=== PATIENT | female | born 1990 | race Caucasian/White ===

== ENCOUNTER 2017-12-29 15:49 | Emergency (ER) | payer MEDICAID, BC ==
[~2017-12-29] VITALS: Ht 165.1 cm; Wt 90.9 kg
[2017-12-29 16:10] VITALS: Ht 165.1 cm; Wt 90.9 kg
[2017-12-29 16:30] LABS: APPEARANCE HAZY (CLEAR); BILIRUBIN NEGATIVE (NEGATIVE); COLOR YELLOW (YELLOW); GLUCOSE NEGATIVE (NEGATIVE); KETONE NEGATIVE (NEGATIVE); NITRITE NEGATIVE (NEGATIVE); PROTEIN NEGATIVE (NEGATIVE); SPECIFIC GRAVITY 1.015 (1.005-1.020)
[2017-12-29 16:31] LABS: RED CELLS - URINE 0-5 /hpf (0-5)
[2017-12-29 16:34] LABS: AMORPHOUS SEDIMENT >1+ /lpf (NONE SEEN); BACTERIA MODERATE /hpf (NONE SEEN)
[2017-12-29 16:37] LABS: BASOPHILS 0.2 % (0-2); EOSINOPHILS 0.6 % (0-7); HEMOGLOBIN 12.7 g/dL (12-16); IMMATURE GRANULOCYTES 0.2 % (0-5); LYMPHOCYTES 24.5 % (15-50); MCH 30.2 pg (26.0-34.0); MCHC 34.3 g/dL (31.0-37.0); MCV 88.1 fL (80.0-100.0); MEAN PLATELET VOLUME 8.3 fL (7.4-10.4); MONOCYTES 8.7 % (2-11); NEUTROPHILS 65.8 % (40-80); PLATELET COUNT 267 10x3/uL (130-400); RDW 13.5 % (11.5-14.5); WBC 16.1 10x3/uL (4.8-10.8)
[2017-12-29 17:07] LABS: ALBUMIN 2.9 g/dL (3.4-5.0); ALKALINE PHOSPHATASE 62 U/L (46-116); ALT (SGPT) 17 U/L (10-68); BILIRUBIN - TOTAL 0.22 mg/dL (0.2-1.3); CALC OSMOLALITY 267 mosm/kg (275-300); CALCIUM 8.7 mg/dL (8.5-10.1); CARBON DIOXIDE 26.9 mmol/L (21.0-32.0); CHLORIDE - SERUM 98 mmol/L (98-107); CREATININE - SERUM 0.7 mg/dL (0.6-1.3); GLUCOSE 109 mg/dL (74-106); POTASSIUM - SERUM 3.8 mmol/L (3.5-5.1); PROTEIN - SERUM 7.7 g/dL (6.4-8.2); SODIUM 134 mmol/L (136-145); UREA NITROGEN 10 mg/dL (7-18); eGFR NON AFRICAN AMERICAN > 90 mL/min (90-120)
[2017-12-29 17:45] LABS: HCG SERUM NEGATIVE (NEGATIVE)
[2017-12-29 17:59] LABS: UDS - AMPHET POSITIVE QUAL (NEGATIVE); UDS - BARB NEGATIVE QUAL (NEGATIVE); UDS - BENZO NEGATIVE QUAL (NEGATIVE); UDS - COCAINE NEGATIVE QUAL (NEGATIVE); UDS - OPIATE NEGATIVE QUAL (NEGATIVE); UDS - PCP NEGATIVE QUAL (NEGATIVE); UDS - THC POSITIVE QUAL (NEGATIVE)
[2017-12-29] MEDS ORDERED: TORADOL10 MG PO (19:55)
[2017-12-29] MEDS ORDERED: MACROBID100 MG PO (19:57)
[2017-12-29] MEDS ORDERED: ZOFRAN8 MG PO (19:57)
[2017-12-29 20:17] VITALS: BP 111/68
[2017-12-31 22:07] LABS: CHLAMYDIA TRACHOMATIS, NAA Negative (Negative)
== END 2017-12-29 20:15 | disposition home or self-care (01) ==
LOC: D.ER 15:49
PROVIDERS: Emergency Medicine
DX: N39.0 Urinary tract infection, site not specified (principal); N12 Tubulo-interstitial nephritis, not specified as acute or chronic; F15.10 Other stimulant abuse, uncomplicated

== ENCOUNTER → 2019-04-18 13:13 | Outpatient (CLI) | payer MEDICAID ==
[2017-12-29 16:10] VITALS: BMI 33.3
[~2019-04-18 13:13] MED LIST: MACROBID100 MG PO; TORADOL10 MG PO; ZOFRAN8 MG PO
[2019-04-18 14:49] LABS: APPEARANCE CLEAR (CLEAR); BILIRUBIN NEGATIVE (NEGATIVE); COLOR YELLOW (YELLOW); GLUCOSE NEGATIVE (NEGATIVE); KETONE NEGATIVE (NEGATIVE); NITRITE NEGATIVE (NEGATIVE); PROTEIN 1+ mg/dL (NEGATIVE); UROBILINOGEN NORMAL (NORMAL)
[2019-04-18 14:50] LABS: BACTERIA FEW /hpf (NEGATIVE); RED CELLS - URINE NONE SEEN /hpf (0-5); WHITE CELLS - URINE 0-5 /hpf (NEGATIVE)
== END | disposition home or self-care (01) ==
LOC: D.LDO 13:13
PROVIDERS: ATTEND Obstetrics & Gynecology
DX: O26.892 Other specified pregnancy related conditions, second trimester (principal); Z3A.23 23 weeks gestation of pregnancy; R10.9 Unspecified abdominal pain

== ENCOUNTER 2019-08-13 05:10 | Outpatient (CLI) | payer MEDICAID ==
[~2019-08-13] VITALS: Ht 165.1 cm; Wt 99.6 kg
[2019-08-13] MEDS ORDERED: ACETAMINOPHEN325 MG PO (06:05)
[2019-08-13 06:08] VITALS: BP 121/73; Ht 165.1 cm; Wt 99.6 kg
[2019-08-13 08:17] LABS: UDS - AMPHET NEGATIVE QUAL (NEGATIVE); UDS - BARB NEGATIVE QUAL (NEGATIVE); UDS - BENZO NEGATIVE QUAL (NEGATIVE); UDS - OPIATE NEGATIVE QUAL (NEGATIVE); UDS - PCP NEGATIVE QUAL (NEGATIVE); UDS - THC POSITIVE QUAL (NEGATIVE)
[2019-08-13 08:37] LABS: HEMATOCRIT 37.2 % (36.0-48.0); HEMOGLOBIN 12.2 g/dL (12-16); MCH 30.6 pg (26.0-34.0); MCHC 32.8 g/dL (31.0-37.0); MCV 93.2 fL (80.0-100.0); MEAN PLATELET VOLUME 10.1 fL (7.4-10.4); RBC 3.99 10x6/uL (4.00-5.40); RDW 13.2 % (11.5-14.5); WBC 10.2 10x3/uL (4.8-10.8)
[2019-08-13 14:06] LABS: UDS - COCAINE NEGATIVE QUAL (NEGATIVE)
[2019-08-14 06:09] LABS: RAPID PLASMA REAGIN Non Reactive (Non Reactive)
== END 2019-08-13 19:00 | disposition home or self-care (01) ==
LOC: D.LD 05:10 → D.LDO 05:10 → UNDOADMIN 05:10 → D.LD 19:00 → D.LDO 19:00 → EDSTATUS 08-14 16:27
PROVIDERS: ATTEND Student in an Organized Health Care Education/Training Program
DX: O26.899 Other specified pregnancy related conditions, unspecified trimester (principal); Z3A.00 Weeks of gestation of pregnancy not specified

== ENCOUNTER 2019-08-16 00:45 | Outpatient (CLI) | payer MEDICAID ==
[2019-08-13 06:08] VITALS: BMI 36.6
[~2019-08-16 00:45] MED LIST changes: +ACETAMINOPHEN325 MG PO
[2019-08-16 01:10] LABS: BILIRUBIN NEGATIVE (NEGATIVE); GLUCOSE NEGATIVE (NEGATIVE); KETONE NEGATIVE (NEGATIVE); NITRITE NEGATIVE (NEGATIVE); SPECIFIC GRAVITY 1.015 (1.005-1.020); UROBILINOGEN NORMAL (NORMAL)
[2019-08-16 01:16] LABS: UDS - AMPHET NEGATIVE QUAL (NEGATIVE); UDS - BARB NEGATIVE QUAL (NEGATIVE); UDS - BENZO NEGATIVE QUAL (NEGATIVE); UDS - COCAINE NEGATIVE QUAL (NEGATIVE); UDS - OPIATE NEGATIVE QUAL (NEGATIVE); UDS - PCP NEGATIVE QUAL (NEGATIVE); UDS - THC POSITIVE QUAL (NEGATIVE)
[2019-08-16] MEDS ORDERED: PRENAVITE1 TAB PO (11:16)
== END 2019-08-16 02:08 | disposition left against medical advice (07) ==
LOC: D.LDO 00:45
PROVIDERS: ATTEND Student in an Organized Health Care Education/Training Program
DX: O26.899 Other specified pregnancy related conditions, unspecified trimester (principal); Z3A.00 Weeks of gestation of pregnancy not specified; Z53.29 Procedure and treatment not carried out because of patient's decision for other reasons

== ENCOUNTER 2019-08-16 08:30 | Inpatient (IN) | payer MEDICAID ==
[~2019-08-16] VITALS: Ht 165.1 cm; Wt 100.0 kg
[2019-08-16] MEDS ORDERED: PRENAVITE1 TAB PO (11:16)
[2019-08-16 11:29] LABS: HEMATOCRIT 37.4 % (36.0-48.0); HEMOGLOBIN 12.8 g/dL (12-16); MCH 30.9 pg (26.0-34.0); MCHC 34.2 g/dL (31.0-37.0); MCV 90.3 fL (80.0-100.0); MEAN PLATELET VOLUME 9.8 fL (7.4-10.4); RBC 4.14 10x6/uL (4.00-5.40); RDW 13.5 % (11.5-14.5)
[2019-08-16 11:30] LABS: BILIRUBIN NEGATIVE (NEGATIVE); GLUCOSE NEGATIVE (NEGATIVE); KETONE NEGATIVE (NEGATIVE); NITRITE NEGATIVE (NEGATIVE); UROBILINOGEN NORMAL (NORMAL)
[2019-08-16 11:32] LABS: BACTERIA FEW /hpf (NEGATIVE); RED CELLS - URINE 0-5 /hpf (0-5); WHITE CELLS - URINE 0-5 /hpf (NEGATIVE)
[2019-08-16 11:50] LABS: UDS - AMPHET NEGATIVE QUAL (NEGATIVE); UDS - BARB NEGATIVE QUAL (NEGATIVE); UDS - BENZO NEGATIVE QUAL (NEGATIVE); UDS - COCAINE NEGATIVE QUAL (NEGATIVE); UDS - OPIATE NEGATIVE QUAL (NEGATIVE); UDS - PCP NEGATIVE QUAL (NEGATIVE); UDS - THC POSITIVE QUAL (NEGATIVE)
[2019-08-16 12:46] VITALS: BP 126/73; Ht 165.1 cm; Wt 100.0 kg
--- NOTE | 2019-08-17 06:00 | NUR ---
ROUNDS MADE. PT RESTING IN SUPINE POSITION W/EYES CLOSED. RESP EVEN AND UNLABORED. SNORING AUDIBLE. PT LEFT UNDISTURBED AT THIS TIME.
--- NOTE | 2019-08-17 07:00 | NUR ---
REPORT RECEIVED FROM Darren SHI RN.
--- NOTE | 2019-08-17 07:30 | NUR ---
PT. AMBULATING OFF UNIT ACCOMPANIED BY VISITOR.
--- NOTE | 2019-08-17 07:30 | NUR ---
PT RETURNED TO L&D WITH VISITOR. PT. TRANSFERRED TO [facility]OMEN[facility]S SERVICES AMBULATORY TO ROOM 1222.
[2019-08-17 09:00] VITALS: BP 133/82
--- NOTE | 2019-08-17 09:04 | NUR ---
PT UP TO VOID. ASSISTED WITH PERICARE. PT WASHED WITH BETADYNE/WATER PERIBOTTLE. DERMAPLAST, TUCKS AND ICE PACK APPLIED TO PERINEUM. ASSISTED T BED. BED IN LOW POSITION; SIDE RAILS UP X2. VISITOR AT BEDSIDE. PT REQUESTING PAIN MED AND NICODERM PATCH. MEDS GIVEN.
--- NOTE | 2019-08-17 10:00 | NUR ---
RESTING IN BED WITH EYES CLOSED. AWAKENS TO VERBAL STIMULATION. STATES PAIN IS BETTER-2/10. VISITOR AT BEDSIDE.
--- NOTE | 2019-08-17 10:30 | NUR ---
INFANT BROUGHT TO PATIENT. PATIENT AWAKE, ALERT. BANDS MATCHED.
[2019-08-17 11:15] VITALS: BP 111/73
--- NOTE | 2019-08-17 12:21 | NUR ---
PT SITTINT UP IN BED, IN ARMS; VISITOR AT BEDSIDE. NO COMPLAINTS OR NEEDS VOICED AT THIS TIME.
--- NOTE | 2019-08-17 13:00 | NUR ---
PT REMOVED NICOTINE PATCH IN ORDER TO SMOKE CIGARETTE.
--- NOTE | 2019-08-17 13:15 | NUR ---
PT AMBULATED OFF UNIT ACCOMPANIED BY VISITOR TO SMOKE.
--- NOTE | 2019-08-17 13:30 | NUR ---
LAB HERE TO DRAW CBC. PT. REMAINS OFF UNIT.
--- NOTE | 2019-08-17 13:57 | NUR ---
PT RETURNED TO UNIT ACCOMPANIED BY VISITOR. PT. STOPPED AT NURSERY TO GET BABY. BABY TO MOTHER'S ROOM VIA OPEN CRIB. LAB NOTIFIED PATIENT HAS RETURNED TO UNIT.
[2019-08-17 14:49] LABS: HEMATOCRIT 30.8 % (36.0-48.0); HEMOGLOBIN 10.6 g/dL (12-16); LYMPHOCYTES 24.4 % (15-50); MCH 31.4 pg (26.0-34.0); MCHC 34.4 g/dL (31.0-37.0); MCV 91.1 fL (80.0-100.0); MEAN PLATELET VOLUME 9.8 fL (7.4-10.4); NEUTROPHILS 71.4 % (40-80); PLATELET COUNT 208 10x3/uL (130-400); RBC 3.38 10x6/uL (4.00-5.40); RDW 13.3 % (11.5-14.5); WBC 12.1 10x3/uL (4.8-10.8)
--- NOTE | 2019-08-17 15:00 | NUR ---
ROUNDS MADE. PT. SITTING UP IN BED. INFANT AT BEDSIDE IN OPEN CRIB. PT.REQUESTS MOTRIN FOR PAIN. PT UP TO BATHROOM. ASSISTED WITH PERICARE. FRESH ICE PACK APPLIED TO PERINEUM.
--- NOTE | 2019-08-17 15:29 | NUR ---
SNACK OF PUDDING AND SOFT DRINK GIVEN.
--- NOTE | 2019-08-17 15:34 | MORECARE ---
CASE MANAGEMENT DISCHARGE SUMMARY PATIENT: DUSTIN PADGETT UNIT: [id number] ADM DATE: 08/16/19 AGE: 28 : 91 SEX: F ROOM/BED: D.1222 AUTHOR: MATT KNUTSON PHYSICIAN: REFERRING PHYSICIAN: DIANNE GOVEA DO DATE OF SERVICE: 08/17/19 Discharge Plan Patient Name: DUSTIN PADGETT Facility: [facility]:[place] : 1990 Planned Disposition: Home Anticipated Discharge Date: 08/17/19 Discharge Date: Expected LOS: 1 Initial Reviewer: [email or web address] Initial Review Date: 08/16/2019 Generated: 08/17/19 4:34 pm Comments DCP- Discharge Planning Updated by [email or web address]: Barbara Obregon on 08/17/19 1:[address] CM received an order for a CM Consult. CM contacted MOB via telephone regarding DC plan. Baby's Full name: Nrom Padgett. MOB Full name: Dustin Padgett. FOB: Momo Meyer #[phone], works at [employer]. Correct Physical Address: [address] [place] [address], [facility]. VANESA is unemployed and will be providing the baby's care. VANESA lives with her boyfriend, Victor Hugo Hernandez #[phone], in a camper. This is VANESA's first baby. Per MOB, FOB will be involved with the baby's care and life. VANESA denies parenting classes priot to delivery. VANESA feels the home environment is a safe one, she has no concerns/questions regarding taking the baby home and her sister, Sophia Padgett will drive her home. VANESA has a car seat, instructed to bring it to the hospital prior to baby DC. VANESA receives [employer] [place], will go to the [facility] office 08/17. VANESA has been attempting to breast feed, but due to absence of milk flow, she is feeding via bottle. MOB states she will continue to attempt breast feeding. VANESA states she has diapers, clothing, a Pack-n-play with a bassinet, car seat. Water supply is with [facility], heating is gas, smoke detectors and she does have air conditioning. Pediatritian: is Water source: [place]. Patient Name: DUSTIN PADGETT Page 20606 at 1534 All edits/amendments must be made on the electronic document DICTATION DATE: 08/17/191533 VAMP LINER: JACLYN 08/17/191533 RPT#: [id number] DC DATE: STATUS: ADM IN [facility] [address] [place] [address] END OF REPORT
--- NOTE | 2019-08-17 16:45 | NUR ---
ROUNDS MADE. PT. SITTING UP IN BED EATING REGULAR DINNER. INFANT AT BEDSIDE IN OPEN CRIB. NO COMPLAINTS OR NEEDS VOICED AT THIS TIME.
[2019-08-17 17:30] VITALS: BP 144/75
--- NOTE | 2019-08-17 18:00 | NUR ---
PT. AMBULATED TO NURSERY WITH INFANT IN OPEN CRIB, THEN OFF UNIT TO MEET SISTER AT FRONT OF BUILDING.
--- NOTE | 2019-08-17 19:00 | NUR ---
REPORT GIVEN BY ÁNGEL LEE
--- NOTE | 2019-08-17 19:11 | NUR ---
PT RETURNED TO FLOOR WITH SISTER. INFORMED PATIENT AND SISTER THAT PATIENT CANNOT LEAVE THE FLOOR FOR MORE THAN 10-15 MINUTES. PT. STATES UNDERSTANDNG[address] DR. RUSS PAGED.
--- NOTE | 2019-08-17 19:15 | NUR ---
DR. RUSS RETURNED PAGE. INFORMED HIM OF PATIENT LEAVING THE UNIT 2X FOR OVER [address] RUSS STATES PATIENT IS TO BE DISCHARGED IMMEDIATELY IF PT. LEAVES WOMEN'S SERVICES AREA AGAIN.
[2019-08-17 20:30] VITALS: BP 123/78
--- NOTE | 2019-08-17 20:30 | NUR ---
PT ASSESSMENT COMPLETED. HEART SOUNDS WNL, LUNGS CLEAR, BS FAINT, FUNDUS FIRM, LOCHIA SMALL. PT HAS A MED.LATERAL INCISION TO VERONIKA AREA. PT HAS BEEN EDUCATED ON HOW TO CLEAN THIS AREA AND APPLY MEDS GIVEN. SHE HAS A SALINE LOCK IN THE LEFT WRIST. PT HAS BEEN AMBULATING UP AND DOWN THE HALLS AND OUTSIDE TO SMOKE SINCE 1330 THIS AFTERNOON. IT WAS EXPLAINED TO HER THAT SHE CANNOT LEAVE THE UNIT ANY MORE TONIGHT. SHE WAS AGREEABLE. SHE ASKED FOR ANOTHER NICOTINE PATCH BUT SINCE SHE'S HAD TWO TODAY I TOLD HER NO. SHE WAS OK WITH THAT, TOO. PT SISTER IS IN THE ROOM. PT HAS THE ITEMS NEEDED TO TAKE A SHOWER LATER THIS EVENING. PT AND BABY BONDING WELL. PT HOLDS BABY KISSING ALL OVER HIM.
--- NOTE | 2019-08-17 23:09 | NUR ---
PT C/O PAIN IN VERONIKA AREA. PERCOCET 5 MG AND MOTRIN 600 MG GIVEN PO. PT IS FEEDING HER BABY WITH THE HELP OF THE NURSERY NURSE. PT SISTER IS IN THE ROOM.
--- NOTE | 2019-08-17 23:51 | NUR ---
PT DOING WELL. STATES PAIN IS ABOUT A 6. PT HOLDING BABY IN HER ARMS. AT BEDSIDE.
--- NOTE | 2019-08-18 02:05 | NUR ---
PT IS RESTING QUIETLY WITH EYES CLOSED. RESPIRATIONS ARE EVEN. NO C/O
--- NOTE | 2019-08-18 04:09 | NUR ---
PT RESTING QUIETLY. NO C/O OR NEEDS.
[2019-08-18 06:09] LABS: RAPID PLASMA REAGIN Non Reactive (Non Reactive)
[2019-08-18 07:51] VITALS: BP 116/74
--- NOTE | 2019-08-18 07:51 | NUR ---
THIS RN TO ROOM FOR SHIFT ASSESSMENT. PT FINISHING UP EATING BREAKFASTS, REQUESTS TO "GO WALK" OFF UNIT TO SMOKE. PT ADVISED MD HAS INSTRUCTED PT TO STAY ON UNIT FOR SAFETY. PT REQUESTS NICOTINE PATCH IF SHE CANNOT LEAVE TO SMOKE. NICOTINE PATCH APPLIED TO LEFT UPPER ARM ORDERED, SEE EMAR FOR DOC. PT RATES PAIN /10, STATES MOTRIN HELPED. SHIFT ASSESSMENT COMPLETED, VSS, SEE FLOWSHEET FOR DOC. FF, ML, U/1. SMALL RUBRA LOCHIA, NO CLOTS. SEVERE LABIAL SWELLING NOTED. PT DENIES WANTING ICE PACK FOR PERINEUM. DISCUSSED S/S TO REPORT WITH HEAVY LOCHIA AND CLOTS, UNDERSTANDING VERBALIZED, PT DENIES HAVING ANY OF THOSE S/S. LEFT WRIST SALINE LOCKED PIV NOTED TO BE SWOLLEN AT SITE WITH DRIED BLOOD. LABS REVIEWED AND NOTED TO BE STABLE, PT DENIES FEELING DIZZY WHEN UP AMBULATING. PIV REMOVED, CLEANED, AND BANDAID APPLIED TO SITE. POC DISCUSSED WITH PT, STATES SHE WANTS TO BE DISCHARGED DEEP SO SHE CAN COME AND GO OFF UNIT. WILL NOTIFY .
[2019-08-18 08:34] LABS: HEMATOCRIT 32.4 % (36.0-48.0); HEMOGLOBIN 10.8 g/dL (12-16); LYMPHOCYTES 30.7 % (15-50); MCH 30.4 pg (26.0-34.0); MCHC 33.3 g/dL (31.0-37.0); MCV 91.3 fL (80.0-100.0); MEAN PLATELET VOLUME 9.6 fL (7.4-10.4); NEUTROPHILS 62.4 % (40-80); PLATELET COUNT 196 10x3/uL (130-400); RBC 3.55 10x6/uL (4.00-5.40); RDW 13.4 % (11.5-14.5); WBC 9.5 10x3/uL (4.8-10.8)
--- NOTE | 2019-08-18 09:04 | NUR ---
DR GOVEA TO ROOM ROUNDING AT THIS TIME.
--- NOTE | 2019-08-18 09:15 | NUR ---
VERBAL ORDER RECEIVED TO DISCHARGE PT TO ROOM IN STATUS, AND MAY CALL IN 600MG MOTRIN Q6H PRN PAIN, DISPENSE 20, TO PT'S PREFERRED PHARMACY. WILL PROCEED ORDERED.
[2019-08-18] MEDS ORDERED: IBUPROFEN600 MG PO (09:28)
--- NOTE | 2019-08-18 10:00 | NUR ---
PT GIVEN DISCHARGE INSTRUCTIONS AND MED INSTRUCTIONS REVIEWED. PT STATE SHE WOULD LIKE MOTRIN PRESCRIPTION CALLED IN TO [facility] ON [address] IN COMSTOCK. ROOM IN AGREEMENT DISCUSSED WITH PT AND FORMS SIGNED, CONTACT PHONE NUMBER PROVIDED. PT VERBALIZES UNDERSTANDING OF ALL INSTRUCTIONS AND SIGNS CHART COPIES OF INSTRUCTIONS. PT UNDERSTANDS TO NOTIFY NURSERY WHEN SHE DEPARTS FROM UNIT.
--- NOTE | 2019-08-18 12:59 | MORECARE ---
CASE MANAGEMENT DISCHARGE SUMMARY PATIENT: DUSTIN PADGETT UNIT: [id number] ADM DATE: 08/16/19 AGE: 28 : [birth year] SEX: F ROOM/BED: D.1222 AUTHOR: ZENIA,DOC PHYSICIAN: REFERRING PHYSICIAN: DIANNE GOVEA DO DATE OF SERVICE: 08/18/19 Discharge Plan Patient Name: DUSTIN PADGETT Facility: [facility]:[place] : 1990 Planned Disposition: Home Anticipated Discharge Date: 08/17/19 Discharge Date: 08/18/2019 Expected LOS: 1 Initial Reviewer: [email or web address] Initial Review Date: 08/16/2019 Generated: 08/18/19 1:59 pm Comments DCP- Discharge Planning Updated by [email or web address]: Barbara Obregon on 08/17/19 1:[address] CM received an order for a CM Consult. CM contacted MOB via telephone regarding DC plan. Baby's Full name: Norm Padgett. MOB Full name: Dustin Padgett. FOB: Momo Meyer #[phone], works at [employer]. Correct Physical Address: [address] [place] [address], [facility]. VANESA is unemployed and will be providing the baby's care. VANESA lives with her boyfriend, Victor Hugo Hernandez #[phone], in a camper. This is VANESA's first baby. Per MOB, FOB will be involved with the baby's care and life. VANESA denies parenting classes priot to delivery. VANESA feels the home environment is a safe one, she has no concerns/questions regarding taking the baby home and her sister, Sophia Padgett will drive her home. VANESA has a car seat, instructed to bring it to the hospital prior to baby DC. VANESA receives [employer] [place], will go to the [facility] office 08/17. VANESA has been attempting to breast feed, but due to absence of milk flow, she is feeding via bottle. MOB states she will continue to attempt breast feeding. VANESA states she has diapers, clothing, a Pack-n-play with a bassinet, car seat. Water supply is with the [facility], heating is gas, smoke detectors and she does have air conditioning. Pediatritian: is Water source: [place]. Last DP export: 08/17/19 2:34 p Patient Name: DUSTIN PADGETT Page 99908 at 1258 All edits/amendments must be made on the electronic document DICTATION DATE: 08/18/19 6634 CONTROL SPECIALIST: JACLYN 08/18/19 0461 RPT#: [id number] DC DATE:08/18/19 STATUS: DIS IN [facility] [address] [place] [address] END OF REPORT
== END 2019-08-18 10:00 | disposition home or self-care (01) | DRG 807 ==
LOC: D.LDO 08:30 → D.LD 09:49 → D.WS 09:49 → D.LD 08-17 05:00 → D.WS 08-17 08:15
PROVIDERS: ADMIT Student in an Organized Health Care Education/Training Program; ATTEND Student in an Organized Health Care Education/Training Program
PROC: 10E0XZZ Delivery of Products of Conception, External Approach (ICD-10-PCS; principal; 2019-08-17)
PROC: 0W8NXZZ Division of Female Perineum, External Approach (ICD-10-PCS; 2019-08-17)
DX: O99.824 Streptococcus B carrier state complicating childbirth (principal); Z37.0 Single live birth; Z3A.40 40 weeks gestation of pregnancy; O99.334 Smoking (tobacco) complicating childbirth; F17.200 Nicotine dependence, unspecified, uncomplicated; O36.8330 Maternal care for abnormalities of the fetal heart rate or rhythm, third trimester, not applicable or unspecified; O69.81X0 Labor and delivery complicated by cord around neck, without compression, not applicable or unspecified

== ENCOUNTER 2019-10-07 11:01 | Emergency (ER) | payer MEDICAID ==
[~2019-10-07] VITALS: Ht 165.1 cm; Wt 90.0 kg
[~2019-10-07 11:01] MED LIST changes: +IBUPROFEN600 MG PO; +PRENAVITE1 TAB PO
[2019-10-07 11:16] VITALS: Ht 165.1 cm; Wt 90.0 kg
[2019-10-07 12:21] LABS: BASOPHILS 0.3 % (0-2); EOSINOPHILS 2.8 % (0-7); HEMATOCRIT 43.2 % (36.0-48.0); HEMOGLOBIN 14.4 g/dL (12-16); IMMATURE GRANULOCYTES 0.2 % (0-5); LYMPHOCYTES 36.9 % (15-50); MCH 30.5 pg (26.0-34.0); MCHC 33.3 g/dL (31.0-37.0); MCV 91.5 fL (80.0-100.0); MEAN PLATELET VOLUME 8.7 fL (7.4-10.4); MONOCYTES 4.8 % (2-11); RBC 4.72 10x6/uL (4.00-5.40); RDW 12.8 % (11.5-14.5)
[2019-10-07 12:22] LABS: PLATELET COUNT 334 10x3/uL (130-400)
[2019-10-07 12:35] LABS: ALBUMIN 3.7 g/dL (3.4-5.0); ALKALINE PHOSPHATASE 71 U/L (30-120); ALT (SGPT) 22 U/L (10-68); CALCIUM 9.4 mg/dL (8.5-10.1); CARBON DIOXIDE 24.3 mmol/L (21.0-32.0); CREATININE - SERUM 0.8 mg/dL (0.6-1.3); GLUCOSE 101 mg/dL (74-106); LIPASE 94 U/L (73-393); PROTEIN - SERUM 7.8 g/dL (6.4-8.2); UREA NITROGEN 20 mg/dL (7-18); eGFR NON AFRICAN AMERICAN 90 mL/min (90-120)
[2019-10-07 13:10] LABS: HCG URINE NEGATIVE (NEGATIVE)
[2019-10-07 13:25] LABS: BILIRUBIN NEGATIVE (NEGATIVE); GLUCOSE NEGATIVE (NEGATIVE); KETONE NEGATIVE (NEGATIVE); NITRITE NEGATIVE (NEGATIVE); SPECIFIC GRAVITY 1.005 (1.005-1.020); UROBILINOGEN NORMAL (NORMAL); WHITE CELLS - URINE 0-5 /hpf (NEGATIVE)
[2019-10-07 13:26] LABS: BACTERIA FEW /hpf (NEGATIVE); EPITHELIAL CELLS 0-5 /hpf (0-5); RED CELLS - URINE RARE /hpf (0-5)
[2019-10-07 13:33] VITALS: BP 117/66
[2019-10-07 13:42] LABS: CALC OSMOLALITY 278 mosm/kg (275-300); CHLORIDE - SERUM 104 mmol/L (98-107); SODIUM 138 mmol/L (136-145)
[2019-10-07] MEDS ORDERED: BENTYL 20 MG TA20 MG PO (14:06)
[2019-10-07] MEDS ORDERED: KEFLEX500 MG PO (14:06)
== END 2019-10-07 14:19 | disposition home or self-care (01) ==
LOC: D.ER 11:01
PROVIDERS: Family Medicine
DX: N39.0 Urinary tract infection, site not specified (principal); R10.9 Unspecified abdominal pain

== ENCOUNTER 2020-08-18 06:56 | Day surgery (SDC) | payer MEDICAID ==
[2020-08-17 12:49] LABS: CALC OSMOLALITY 279 mosm/kg (275-300); CALCIUM 9.3 mg/dL (8.5-10.1); CARBON DIOXIDE 29.5 mmol/L (21.0-32.0); CHLORIDE - SERUM 102 mmol/L (98-107); CREATININE - SERUM 0.8 mg/dL (0.6-1.3); GLUCOSE 130 mg/dL (74-106); POTASSIUM - SERUM 4.3 mmol/L (3.5-5.1); SODIUM 137 mmol/L (136-145); UREA NITROGEN 23 mg/dL (7-18); eGFR NON AFRICAN AMERICAN 90 mL/min (90-120)
[2020-08-17 12:52] LABS: BASOPHILS 0.5 % (0-2); EOSINOPHILS 2.3 % (0-7); HEMOGLOBIN 14.7 g/dL (12-16); IMMATURE GRANULOCYTES 0.2 % (0-5); LYMPHOCYTE ABS# 3.15 10x3/uL (1.18-3.74); LYMPHOCYTES 30.4 % (15-50); MCH 29.9 pg (26.0-34.0); MCHC 33.4 g/dL (31.0-37.0); MCV 89.6 fL (80.0-100.0); MEAN PLATELET VOLUME 9.7 fL (7.4-10.4); MONOCYTES 6.6 % (2-11); NEUTROPHIL ABS# 6.23 10x3/uL (1.56-6.13); RBC 4.91 10x6/uL (4.00-5.40); RDW 13.1 % (11.5-14.5); WBC 10.4 10x3/uL (4.8-10.8)
[2020-08-17 12:58] LABS: PLATELET COUNT 266 10x3/uL (130-400)
[~2020-08-18] VITALS: Ht 165.1 cm; Wt 101.6 kg
--- NOTE | ~2020-08-18 | OP ---
PATIENT NAME: DUSTIN MERCEDES MEDICAL RECORD: [id number] :[birth year] LOCATION:D.OPS ADMISSION DATE: SURGEON: MATT DIGGS MD DATE OF OPERATION: 08/18/2020 PREOPERATIVE DIAGNOSES: 1. Ventral hernia. 2. Anxiety. 3. Obesity with a BMI of 37. POSTOPERATIVE DIAGNOSES: 1. Ventral hernia. 2. Anxiety. 3. Obesity with a BMI of 37. PROCEDURE: Ventral hernia repair with 6.[address] mesh. SURGEON: Matt Diggs MD REPORT OF PROCEDURE: The patient's abdomen was prepped and draped in sterile fashion. A skin incision was made in the midline just above the umbilicus. Electrocautery was used to dissect through the subcutaneous tissues and we immediately encountered a large hernia sac. This hernia sac was dissected free from the surrounding fatty tissue. As we got to the base of the sac, we were able to excise the sac at its base using electrocautery. The fascial edges were cleared off and we measured this hernia defect at about 3.5 cm wide and 2 cm long. Just below this at the base of the umbilicus, there was a subcentimeter hernia defect present and just above the larger hernia defect, there was a 1-cm hernia defect in the midline. I cleared off the fascia above and below and was able to insert a 6.[address] mesh, which covered all 3 of the hernia defects. This was sutured into place in an underlay fashion using interrupted 0 Prolenes times 4. After we irrigated out the wound bed, then the fascia was closed on the larger hernia defect transversely using a running 0 Vicryl. The 2 other smaller defects were oversewn with [id number] 0 Vicryls. The umbilicus was tacked down to the fascia using a single interrupted 3-0 Vicryl and the subcutaneous tissues were reapproximated with interrupted 3-0 Vicryl. The skin incisions was infused with 10 mL of 0.25% Marcaine with epinephrine and then closed with running subcutaneous 5-0 Monocryl. COMPLICATIONS: None. CONDITION: Stable. ANESTHESIA: General endotracheal and local. BLOOD LOSS: Minimal. TRANSINT:[id number] Voice Confirmation ID: [id number] DOCUMENT ID: [id number] OPERATIVE REPORT [id number] DAREN,CHELSEA MATT DIGGS MD CC: NANCY MCKEON [id number] DICTATION DATE: 08/18/20 0959 FORESTRY FIRE AID: 08/18/20 1225 [facility] 08/18/20 [place] [id number] [place] [address]
[~2020-08-18 06:56] MED LIST changes: +BENTYL 20 MG TA20 MG PO; +KEFLEX500 MG PO; +PROZAC20 MG PO
[2020-08-18 07:42] VITALS: BP 113/73; Ht 165.1 cm; Wt 101.6 kg
[2020-08-18 08:14] LABS: HCG URINE NEGATIVE (NEGATIVE)
[2020-08-18] MEDS ORDERED: HYDROCODON-ACE1 EA10 PO (09:58)
--- NOTE | 2020-08-18 11:25 | NUR ---
1113 MEDICATED FOR PAIN. ASSISTED TO BATHROOM VOIDED X1 ICE APPLIED TO RIGHT HAND FROM PREVIOUS IV START. AREA BRUISED AND PAINFUL
--- NOTE | 2020-08-18 12:23 | NUR ---
1130 IV REMOVED AND INSTRUCTIONS GIVEN
== END 2020-08-18 12:05 | disposition home or self-care (01) ==
LOC: D.OPS 06:56
PROVIDERS: ATTEND Surgery
DX: K43.9 Ventral hernia without obstruction or gangrene (principal); F41.9 Anxiety disorder, unspecified; E66.9 Obesity, unspecified; Z68.37 Body mass index [BMI] 37.0-37.9, adult